=== PATIENT | female | born 1985 | race Asian ===

== ENCOUNTER → 2018-10-22 | Outpatient (CLI) | payer OTHER ==
[2018-10-22 09:16] LABS: BASOPHIL % 1.4 % (0-2); PLATELET COUNT 360 x10^3mcL (130-400)
[2018-10-22 09:18] LABS: CARBON DIOXIDE 29.5 mmol/L (21-32); CREATININE SERUM 0.6 mg/dL (0.6-1.0); GFR1 > 60 mL/min
[2018-10-22 09:19] LABS: RED CELL DISTRIBUTION WIDTH 17.3 % (11.5-14.5)
[2018-10-22 09:23] LABS: microscopic required? NO
[2018-10-22 09:39] LABS: ALBUMIN 4.3 g/dL (3.4-5.0); ALKALINE PHOSPHATASE 56 U/L (46-116); ALT/SGPT 19 U/L (14-59); AST/SGOT 14 U/L (15-37); BILIRUBIN TOTAL 0.3 mg/dL (0.20-1.00); CALCIUM 8.7 mg/dL (8.5-10.1); CHLORIDE SERUM 105 mmol/L (98-107); CHOLESTEROL 174 mg/dL (<200); CHOLESTEROL/HDL RATIO 3.3; FREE T4 0.78 ng/dL (0.76-1.46); GLUCOSE SERUM 92 mg/dL (74-106); HDL CHOLESTEROL 53 mg/dL (40-60); SODIUM SERUM 143 mmol/L (136-145); TRIGLYCERIDES 136 mg/dL (<150)
[2018-10-22 09:52] LABS: TOTAL PROTEIN, SERUM 8.5 g/dL (6.4-8.2)
[2018-10-22 10:35] LABS: UA SPECIFIC GRAVITY 1.025 (1.005-1.035); urine erythrocyte NEGATIVE (NEGATIVE)
== END | disposition home or self-care (01) ==
LOC: LB 08:36
DX: R10.2 Pelvic and perineal pain (principal); Z13.29 Encounter for screening for other suspected endocrine disorder; Z11.3 Encounter for screening for infections with a predominantly sexual mode of transmission; Z13.228 Encounter for screening for other metabolic disorders; Z13.21 Encounter for screening for nutritional disorder; Z13.1 Encounter for screening for diabetes mellitus; Z13.0 Encounter for screening for diseases of the blood and blood-forming organs and certain disorders involving the immune mechanism; Z13.220 Encounter for screening for lipoid disorders
CPT/HCPCS: 82652; 84439; 87491; 87591

== ENCOUNTER → 2018-12-01 | Outpatient (CLI) | payer OTHER ==
[2018-12-01 16:59] LABS: microscopic required? NO
[2018-12-01 17:08] LABS: UA SPECIFIC GRAVITY 1.015 (1.005-1.035); urine erythrocyte NEGATIVE (NEGATIVE)
== END | disposition home or self-care (01) ==
LOC: LB 16:35
PROC: BT43ZZZ Ultrasonography of Bilateral Kidneys (ICD-10-PCS; principal; 2018-12-01)
DX: R10.9 Unspecified abdominal pain (principal)